=== PATIENT | female | born 1935 | race Caucasian/White ===

== ENCOUNTER 2020-08-23 08:59 | Day surgery (SDC) | payer MEDICARE ==
[2020-08-20 12:08] LABS: BASOPHILS % (AUTO) 1 % (0-1); EOSINOPHILS % (AUTO) 3 % (1-7); LYMPHOCYTES % (AUTO) 29 % (22-44); MEAN CORPUSCULAR HEMOGLOBIN 32.2 pg (27.0-34.8); MEAN CORPUSCULAR HGB CONC 33.6 g/dL (32.4-35.8); MEAN PLATELET VOLUME 9.5 fL (7.4-10.4); MONOCYTES % (AUTO) 9 % (2-9); NEUTROPHILS % (AUTO) 58 % (42-75); PLATELET COUNT 180 x10^3/uL (130-400); RED BLOOD COUNT 3.43 x10^6/uL (3.82-5.3); RED CELL DISTRIBUTION WIDTH 13.8 % (9.6-15.2)
[2020-08-20 12:09] LABS: MD NO
[2020-08-20 12:20] LABS: INTERNATIONAL NORMALIZED RATIO 1.01 (0.93-1.1); PROTHROMBIN TIME 10.8 Seconds (9.6-11.5)
[2020-08-20 12:21] LABS: ALBUMIN 3.4 g/dL (3.4-5.0); ANION GAP 5 mmol/L (5-15); CALCIUM 8.9 mg/dL (8.5-10.1); CHLORIDE 111 mmol/L (98-107)
[2020-08-20 12:24] LABS: ALANINE AMINOTRANSFERASE 24 U/L (12-78); ALKALINE PHOSPHATASE 63 U/L (45-117); BILIRUBIN,TOTAL 0.4 mg/dL (0.2-1.0); CREATININE 2.08 mg/dL (0.55-1.02)
[~2020-08-23] VITALS: Ht 144.8 cm; Wt 67.3 kg
[~2020-08-23 08:59] MED LIST: CHOL10003 PO; LEVO75TA5 PO
[2020-08-23 09:30] VITALS: BP 178/99
[2020-08-23] MEDS ORDERED: LACTATED RINGERS 1,000 ML IV SCH (09:30)
[2020-08-23] MEDS ORDERED: CHLORHEXIDINE 15 ML UDC PO ONE (09:30)
[2020-08-23] MEDS ORDERED: CHLORHEXIDINE 15 ML UDC ONE (09:35)
[2020-08-23] MEDS ORDERED: BUPIVACAINE/PF 0.5% ONE (10:35)
[2020-08-23] MEDS ORDERED: EPINEPHRINE 1 MG/ML, 1ML ONE (10:35)
[2020-08-23] MEDS ORDERED: FENTANYL PF 100 MCG/2ML ONE (10:59)
[2020-08-23] MEDS ORDERED: PROMETHAZINE 25 MG/ML, 1ML IVPush PRN (11:00)
[2020-08-23] MEDS ORDERED: HALOPERIDOL 5 MG/ML IV PRN (11:00)
[2020-08-23] MEDS ORDERED: hydrALAzine 20 MG/ML, 1ML IV PRN (11:00)
[2020-08-23] MEDS ORDERED: OXYcodone 5 MG/5 ML ORAL.SOL UDC PO PRN ×2 (11:00→11:30)
[2020-08-23] MEDS ORDERED: MEPERIDINE/PF 25MG/0.5ML IVPush PRN (11:00)
[2020-08-23] MEDS ORDERED: FENTANYL PF 100 MCG/2ML IV PRN (11:00)
[2020-08-23] MEDS ORDERED: HYDROmorphone 1 MG/ML, 1ML INJ IVPush PRN (11:00)
[2020-08-23] MEDS ORDERED: LABETALOL 5MG/ML, 20ML IV PRN (11:00)
[2020-08-23] MEDS ORDERED: SUCCINYLCHOLINE 20 MG/ML, 10ML ONE (11:24)
[2020-08-23] MEDS ORDERED: PROPOFOL 10 MG/ML, 20ML ONE (11:24)
[2020-08-23] MEDS ORDERED: NEOSTIGMINE 1 MG/ML, 10ML ONE (11:24)
[2020-08-23] MEDS ORDERED: DEXAMETHASONE 4 MG/ML, 1ML ONE (11:24)
[2020-08-23] MEDS ORDERED: CEFAZOLIN 1,000 MG ONE (11:24)
[2020-08-23] MEDS ORDERED: ONDANSETRON 2MG/ML, 2ML ONE (11:24)
[2020-08-23] MEDS ORDERED: ROCURONIUM 10MG/ML,5ML ONE (11:24)
[2020-08-23] MEDS ORDERED: GLYCOPYRROLATE 0.2MG/1ML, 5ML ONE (11:24)
[2020-08-23] MEDS ORDERED: OXYC5TAB2 PO (11:31)
== END 2020-08-23 14:10 | disposition home or self-care (01) ==
LOC: OUT 08:59
PROVIDERS: ATTEND Surgery
DX: Z49.02 Encounter for fitting and adjustment of peritoneal dialysis catheter (principal); E03.9 Hypothyroidism, unspecified; N18.6 End stage renal disease; M10.9 Gout, unspecified; Z20.822 Contact with and (suspected) exposure to COVID-19; Z79.01 Long term (current) use of anticoagulants; Z79.890 Hormone replacement therapy; Z79.899 Other long term (current) drug therapy; Z85.828 Personal history of other malignant neoplasm of skin; Z87.891 Personal history of nicotine dependence
CPT/HCPCS: 36415; 49422; 80053; 85025; 85610; 85730; 93005; J0171; J0330; J0690; J1100; J2405; J2704; J2710; J3010; J7120; U0003